=== PATIENT | female | born 1975 | race Caucasian/White ===

== ENCOUNTER 2020-11-01 21:22 | Emergency (ER) | payer MEDICAID ==
[~2020-11-01] VITALS: Ht 165.1 cm; Wt 79.8 kg
--- NOTE | 2020-11-01 21:50 | NUR ---
Pt here for pressure-like chest pain w/ L hand numbness for several months. Pt. here today because cp became worse. No sob, n/v.
--- NOTE | 2020-11-01 21:52 | NUR ---
Pt taken to xray
[2020-11-01 22:01] LABS: HEMATOCRIT 41.5 % (31.2-41.9); MEAN CORPUSCULAR HEMOGLOBIN 26.4 uug (24.7-32.8); MEAN CORPUSCULAR VOLUME 79.2 fL (75.5-95.3); PLATELET COUNT (AUTO) 320 K/uL (179-408)
[2020-11-01 22:07] LABS: CREATININE 0.9 mg/dL (0.6-1.3); POTASSIUM 3.5 mmol/L (3.5-5.1)
[2020-11-01 22:18] LABS: BILIRUBIN,DIRECT 0.1 mg/dL (0.0-0.2); BILIRUBIN,TOTAL 0.2 mg/dL (0.2-1.0); MAGNESIUM 1.9 mg/dL (1.8-2.4); PHOSPHOROUS 2.4 mg/dL (2.5-4.9); TOTAL PROTEIN, SERUM 7.1 g/dL (6.4-8.2)
[2020-11-01] MEDS ORDERED: PANT40TA2 PO (22:45)
[2020-11-01] MEDS ORDERED: PHOS250T2 PO (22:50)
--- NOTE | 2020-11-01 23:00 | NUR ---
Patient discharged to home in stable condition. Written and verbal after care instructions given. Patient verbalizes understanding of instructions. Stressed follow up or return to ER for worsening s/s. Pt walks with steady gait. NAD. VSS. All belongings taken.
[2020-11-01 23:38] VITALS: BP 121/72
== END 2020-11-01 23:00 | disposition home or self-care (01) ==
LOC: ER 21:24
DX: R07.2 Precordial pain (principal); E83.39 Other disorders of phosphorus metabolism; F17.210 Nicotine dependence, cigarettes, uncomplicated; F11.20 Opioid dependence, uncomplicated; Z87.442 Personal history of urinary calculi
CPT/HCPCS: 36415; 70030-TC; 71046; 83690; 83735; 84100; 85025; 93005; A4663